=== PATIENT | male | born 1960 | race Caucasian/White ===

== ENCOUNTER 2017-09-05 15:32 | Emergency (ER) | payer OTHER ==
[2017-09-05 15:52] VITALS: BP 148/77; PULSE 60; O2SAT 99
--- NOTE | 2017-09-05 15:54 | ERPHSYRPT ---
- History of Present Illness Time Seen by Provider: 09/05/17 15:49 Source: patient Exam Limitations: no limitations Patient Subjective Stated Complaint: PT REPORTS CUTTING HIS THUMB ON A KNIFE- DENIES NUMBNESS OR TINLGING-PT PLACED LATEX GLOVE ON HAND ET WILL NOT HOLD PRESSURE TO THUMB Triage Nursing Assessment: PT PINK WARM ET [id number] TO THUMB-BLEEDING IS CONTROLLED WITH PRESSURE Physician History: Pt. cut L thumb with sharp knife resulting in lac to PIP joint area. Superficial lac with minimal bleeding. Pt. with good ROM, no numbness, tingling or weakness of thumb movement. Tetanus status updates. Occurred: just prior to arrival Method of Injury: direct blow, incised Quality: intermittent, aching Severity of Pain-Max: mild Severity of Pain-Current: mild Extremities Pain Location: thumb: left Modifying Factors: Improves With: movement (worsens) Associated Symptoms: none Allergies/Adverse Reactions: Penicillins Allergy (Mild, Verified 09/05/17 15:48) Home Medications: Levothyroxine Sodium 125 Mcg [Synthroid 125 Mcg] 125 mcg PO DAILY 07/25/12 [History] Alprazolam [Xanax 0.5 mg] 0.5 mg PO DAILY 09/05/17 [History] Hx Tetanus, Diphtheria Vaccination/Date Given: Yes Hx Influenza Vaccination/Date Given: Yes Hx Pneumococcal Vaccination/Date Given: Yes Immunizations Up to Date: Yes - Review of Systems Constitutional: No Fever, No Chills Eyes: No Symptoms Ears, Nose, & Throat: No Symptoms Respiratory: No Cough, No Dyspnea Cardiac: No Chest Pain, No Edema, No Syncope Abdominal/Gastrointestinal: No Abdominal Pain, No Nausea, No Vomiting, No Diarrhea Genitourinary Symptoms: No Dysuria Musculoskeletal: No Back Pain, No Neck Pain Skin: Other (Lac to L thumb), No Rash Neurological: No Dizziness, No Focal Weakness, No Sensory Changes Psychological: No Symptoms Endocrine: No Symptoms All Other Systems: Reviewed and Negative - Past Medical History Pertinent Past Medical History: Yes Neurological History: Migraines ENT History: No Pertinent History Cardiac History: High Cholesterol Respiratory History: COPD, Sleep Apnea Endocrine Medical History: Hypothyroidism Musculoskeletal History: No Pertinent History GI Medical History: GERD, Hernia History: No Pertinent History Psycho-Social History: Anxiety Male Reproductive Disorders: No Pertinent History Other Medical History: LYMPHOMA - Past Surgical History Past Surgical History: Yes Neuro Surgical History: No Pertinent History Cardiac: No Pertinent History Respiratory: No Pertinent History Gastrointestinal: No Pertinent History Genitourinary: No Pertinent History Musculoskeletal: No Pertinent History Male Surgical History: No Pertinent History Other Surgical History: LEFT PORT - Social History Smoking Status: Current every day smoker How long have you smoked: 28 years Exposure to second hand smoke: No Alcohol Use: Socially Drug Use: none Patient Lives Alone: No Significant Family History: no pertinent family hx - Nursing Vital Signs Nursing Vital Signs: Initial Vital Signs Temperature 98.1 F 09/05/17 15:50 Pulse Rate 60 09/05/17 15:50 Respiratory Rate 20 09/05/17 15:50 Blood Pressure 148/77 09/05/17 15:50 O2 Sat by Pulse Oximetry 99 09/05/17 15:50 Pain Scale Pain Intensity 1 - Physical Exam General Appearance: alert Eyes, Ears, Nose, Throat Exam: moist mucous membranes Neck Exam: non-tender, supple Cardiovascular/Respiratory Exam: chest non-tender, normal breath sounds, regular rate/rhythm, no respiratory distress Abdominal Exam: non-tender, No guarding Back Exam: normal inspection, No vertebral tenderness Shoulder Exam: normal inspection Elbow/Forearm Exam: normal inspection Wrist Exam: normal inspection Hand Exam: laceration (L PIP area, superficial 2 cm lac, good strength with thumb movement vs. resistance, tendon visualized and intact, neurovascularly intact) Neuro/Tendon Exam: normal sensation, normal motor functions Mental Status Exam: alert, oriented x 3, cooperative Skin Exam: normal color, warm, dry Procedures - Laceration/Wound Repair Left Dorsal Finger Wound Location: Left Wound Length (cm): 2 Wound's Depth, Shape: superficial Wound Explored: clean Irrigated: Yes Hibiclens Prep: Yes Anesthesia: 1% Lidocaine Volume Anesthetic (ccs): 4 Wound Debrided: minimal Wound Repaired With: sutures Suture Size/Type: 4-0, nylon Number of Sutures: 5 Sterile Dressing Applied?: Yes Splint Applied?: Yes Sling Applied?: Yes - Course Nursing assessment & vital signs reviewed: Yes Ordered Tests: Active Orders 24 hr Category Date Time Status Splint STAT Care 09/05/17 16:08 Ordered - Progress Progress: improved Counseled pt/family regarding: diagnosis - Departure Time of Disposition: 16:11 Departure Disposition: Home Clinical Impression: Laceration of left thumb Qualifiers: Encounter type: initial encounter Condition: Stable Critical Care Time: No Referrals: NOE DANIELS MD [Primary Care Provider] - Instructions: Care for a Laceration After Repair, Laceration Repair -- Finger Additional Instructions: Sutures out in 10-14 days Motrin or Tylenol for pain/swelling Return for worse pain, numbness, tingling, redness, pus from wound or any problems
[2017-09-05] MEDS ORDERED: BACIGUENT PACKET ONE (16:20)
[2017-09-05] MEDS ORDERED: BACIGUENT PACKET TP ONE (16:27)
== END 2017-09-05 16:40 | disposition home or self-care (01) ==
LOC: ED 15:32
PROC: 0HQGXZZ Repair Left Hand Skin, External Approach (ICD-10-PCS; principal; 2017-09-05)
DX: S61.012S Laceration without foreign body of left thumb without damage to nail, sequela (principal); W26.0XXS Contact with knife, sequela
CPT/HCPCS: 12001; 99283; A9270-GY

== ENCOUNTER 2017-09-18 10:52 | Emergency (ER) | payer OTHER ==
[2017-09-18 11:04] VITALS: BP 135/74; PULSE 76; O2SAT 95
--- NOTE | 2017-09-18 11:07 | ERPHSYRPT ---
- History of Present Illness Time Seen by Provider: 09/18/17 11:04 Source: patient Exam Limitations: no limitations Patient Subjective Stated Complaint: had stitches placed in his thumb on left hand and they need to come out and its swollen and peeling Triage Nursing Assessment: pt alert and orientedx3, gait steady, ambulates by self, skin warm dry adn intact, able to bend finger , cap refill immediate, radial pulse present, some redness and drainageo n finger, red around wound site , thumb incision appears to bwe healing from inside out but has opened back up Physician History: came for sutures removal on left thumb Allergies/Adverse Reactions: Penicillins Allergy (Mild, Verified 09/05/17 15:48) Home Medications: Levothyroxine Sodium 125 Mcg [Synthroid 125 Mcg] 125 mcg PO DAILY 07/25/12 [History] Alprazolam [Xanax 0.5 mg] 0.5 mg PO DAILY 09/05/17 [History] Hx Tetanus, Diphtheria Vaccination/Date Given: Yes Hx Influenza Vaccination/Date Given: Yes Hx Pneumococcal Vaccination/Date Given: Yes Immunizations Up to Date: Yes - Review of Systems Constitutional: No Symptoms Musculoskeletal: No Symptoms Skin: Cellulitis, Induration - Past Medical History Pertinent Past Medical History: Yes Neurological History: Migraines ENT History: No Pertinent History Cardiac History: High Cholesterol Respiratory History: COPD, Sleep Apnea Endocrine Medical History: Hypothyroidism Musculoskeletal History: No Pertinent History GI Medical History: GERD, Hernia History: No Pertinent History Psycho-Social History: Anxiety Male Reproductive Disorders: No Pertinent History Other Medical History: LYMPHOMA - Past Surgical History Past Surgical History: Yes Neuro Surgical History: No Pertinent History Cardiac: No Pertinent History Respiratory: No Pertinent History Gastrointestinal: No Pertinent History Genitourinary: No Pertinent History Musculoskeletal: No Pertinent History Male Surgical History: No Pertinent History Other Surgical History: LEFT PORT - Social History Smoking Status: Current every day smoker How long have you smoked: 28 years Exposure to second hand smoke: No Alcohol Use: Socially Drug Use: none Patient Lives Alone: No Significant Family History: no pertinent family hx - Nursing Vital Signs Nursing Vital Signs: Initial Vital Signs Temperature 98.7 F 09/18/17 10:54 Pulse Rate 76 09/18/17 10:54 Respiratory Rate 76 H 09/18/17 10:54 Blood Pressure 135/74 09/18/17 10:54 O2 Sat by Pulse Oximetry 95 09/18/17 10:54 Pain Scale Pain Intensity 2 - Physical Exam General Appearance: no apparent distress Hand Exam: soft tissue tenderness, swelling (left thumb) SpO2: 95 Oxygen Delivery: Room Air - Course Nursing assessment & vital signs reviewed: Yes Ordered Tests: Active Orders 24 hr Category Date Time Status Suture Removal STAT Care 09/18/17 11:01 Active - Progress Progress: improved Counseled pt/family regarding: diagnosis - Departure Time of Disposition: 11:06 Departure Disposition: Home Clinical Impression: Encounter for removal of sutures Laceration of left thumb Qualifiers: Encounter type: sequela Damage to nail status: without damage Foreign body presence: without foreign body Qualified Code(s): S61.012S - Laceration without foreign body of left thumb without damage to nail, sequela Condition: Stable Critical Care Time: No Referrals: NOE DANIELS MD [Primary Care Provider] -
== END 2017-09-18 11:29 | disposition home or self-care (01) ==
LOC: ED 10:52
DX: Z48.02 Encounter for removal of sutures (principal); S61.012S Laceration without foreign body of left thumb without damage to nail, sequela
CPT/HCPCS: 99283